=== PATIENT | female | born 1950 | race Caucasian/White ===

== ENCOUNTER → 2019-02-27 | Outpatient (CLI) | payer MEDICARE ==
--- NOTE | 2019-02-27 12:11 | RADIOLOGY IMAGING REPORT ---
FACILITY: [facility] PATIENT NAME: Ilana Mane : 1950 MR: [id number] V: [id number] EXAM DATE: ORDERING PHYSICIAN: ADENIKE CEBALLOS TECHNOLOGIST: Location: [facility] [place] Patient: Ilana Mane : 1950 Visit/Account:[id number] Date of Sevice: 02/27/2019 EXAMINATION: CT head without IV contrast HISTORY: Dementia. COMPARISON: None. TECHNIQUE: Contiguous axial images were obtained from the skull base to the vertex without intraven ous contrast. Sagittal and coronal reformatted images are also submitted. One of the following dose optimization techniques was utilized in the performance of this exam: Autom ated exposure control; adjustment of the mA and/or kV according to the patient's size; or use of an i terative reconstruction technique. Specific details can be referenced in the facility's radiology C T exam operational policy. FINDINGS: Brain volume: Mild generalized atrophy with associated concordant prominence of the ventricular syst em. Ventricles: Normal. Acute ischemic changes: None. Hemorrhage: None. Masses/edema: None. Ortez-white: Negative. White matter: Normal. Vessels: Calcified plaque of both carotid siphons. Extra-axial: Negative. Calvarium/scalp: Negative. Skull base/visualized face: Negative. Visualized sinuses/orbits: Previous lens surgery bilaterally. IMPRESSION: 1. No acute hemorrhage or intracranial mass lesion. No CT evidence of acute infarct. 2. Mild generalized atrophy is age appropriate. Report Dictated By: Zena Pleitez MD at 02/27/2019 12:06 PM Report E-Signed By: Zena Pleitez MD at 02/27/2019 12:08 PM WSN:[id number]
== END ==
LOC: CT 08:22
PROVIDERS: ATTEND Family Medicine
DX: F03.91 Unspecified dementia, unspecified severity, with behavioral disturbance (principal)
CPT/HCPCS: 36415; 70450; 82565